=== PATIENT | female | born 1985 | race African-American/Black ===

== ENCOUNTER 2018-03-05 01:27 | Inpatient (IN) | payer MEDICAID ==
[2018-03-05] MEDS ORDERED: PITOCin/NS 20 UNIT/1000ML DRIP 20,000 MILLIUNITS/1,000 ML BAG IV ONE (01:40)
[2018-03-05] MEDS ORDERED: LACTATED RINGERS 1,000 ML ONE (01:40)
[2018-03-05 02:14] LABS: Basophils % (Auto) 0.2 % (0.0-1.8); Eosinophils # (Auto) 0.1 K/mm3 (0.0-0.4); Eosinophils % (Auto) 0.9 % (0.0-4.3); Hematocrit 40.1 % (30.3-42.9); Hemoglobin 13.9 gm/dl (10.1-14.3); Lymphocytes # (Auto) 3.2 K/mm3 (1.2-5.4); Mean Corpuscular HGB Conc 35 % (30-34); Mean Corpuscular Hemoglobin 32 pg (28-32); Mean Corpuscular Volume 93 fl (79-97); Monocytes # (Auto) 0.9 K/mm3 (0.0-0.8); Monocytes % (Auto) 8.8 % (0.0-7.3); Platelet Count 186 K/mm3 (140-440); Red Blood Count 4.31 M/mm3 (3.65-5.03); Red Cell Distribution Width 13.5 % (13.2-15.2)
[2018-03-05] MEDS ORDERED: XYLOCAINE 2% INFILTRATI ONE ×2 (02:20→02:40)
--- NOTE | 2018-03-05 02:37 | History and Physical Report ---
History of Present Illness Date of examination: 03/05/18 Date of admission: 03/05/18 01:40 Chief complaint: Labor History of present illness: Pt is a 32yo IF EDC 03/10/18; EGA 39 2/7 weeks presents to L&D complaining of RUC's q 3-4 mins and now dilated 10cms. She received care at [facility] , however records are not available and GBS is unknown. Past History Past Medical History: no pertinent history Past Surgical History: no surgical history Family/Genetic History: none Social history: no significant social history, - Obstetrical History Expected Date of Delivery: 03/10/18 Actual Gestation: 39 Week(s) 2 Day(s) : 2 Medications and Allergies Allergies Allergy/AdvReac Type Severity Reaction Status Date / Time No Known Allergies Allergy Unverified 01/15/15 00:38 Home Medications Medication Instructions Recorded Confirmed Last Taken Type Vits96/Iron Fum/Folic 1 tab PO DAILY 01/15/15 01/15/15 01/13/15 23:00 History [ Tablet] 1 tab Ferrous Fumarate [Hemocyte] 324 mg PO QDAY #30 tablet 01/16/15 Unknown Rx Ibuprofen [Motrin] 600 mg PO Q8H PRN #30 tablet 01/16/15 Unknown Rx traMADol [Ultram] 50 mg PO Q4HR PRN #30 tablet 01/16/15 Unknown Rx Active Meds: Active Medications Lactated Ringer's (Lactated Ringers) 1,000 mls @ 125 mls/hr IV DIRECT ALBERTO Oxytocin/Sodium Chloride (Pitocin/Ns 20 Unit/1000ml Drip) 20 units in 1,000 mls @ 250 mls/hr IV DIRECT ALBERTO Review of Systems All systems: negative - Vital Signs Vital signs: Vital Signs Pulse Resp BP 86 18 126/73 03/05/18 01:48 03/05/18 01:48 03/05/18 01:48 Temp Pulse Resp BP Pulse Ox 98 F 100 H 18 119/56 03/05/18 02:32 03/05/18 02:28 03/05/18 02:27 03/05/18 02:28 - Physical Exam Breasts: Positive: deferred Cardiovascular: Regular rate Lungs: Positive: Clear to auscultation Abdomen: Positive: normal appearance Genitourinary (Female): Positive: normal external genitalia Vagina: Positive: normal moisture Uterus: Positive: enlarged Extremities: Positive: normal - Obstetrical FHR: category 1 Uterine Contraction Monitor Mode: External Cervical Dilatation: 10 Cervical Effacement Percentage: 100 station: +1 Uterine Contraction Pattern: Regular Uterine Tone Measurement Phase: Contraction Uterine Contraction Intensity: Strong/Firm Results Result Diagrams: 03/05/18 01:45 Abnormal lab results 03/05/18 Range/Units 01:45 MCHC 35 H (30-34) % Keith % (Auto) 8.8 H (0.0-7.3) % Keith # 0.9 H (0.0-0.8) K/mm3 All other labs normal. Assessment and Plan - Patient Problems (1) 39 weeks gestation of Onset Date: 03/05/18 Current Visit: Yes Status: Acute Plan to address problem: A: IUP @ 39 2/7 weeks in labor Unknown GBS P: Admit to L&D for expectant vaginal delivery IV Ampicillin Obtain records
[2018-03-05] MEDS ORDERED: MINERAL OIL PO PRN (02:40)
[2018-03-05] MEDS ORDERED: BRETHINE SUB-Q PRN (02:40)
[2018-03-05] MEDS ORDERED: ePHEDrine SULFATE IV PRN (02:40)
[2018-03-05] MEDS ORDERED: BRETHINE IVP PRN (02:40)
--- NOTE | 2018-03-05 02:40 | Procedure Note ---
OB Delivery Note - Delivery Date of Delivery: 03/05/18 Surgeon: OBDULIO CHAPMAN Estimated blood loss: 200cc - Vaginal Delivery presentation: vertex Delivery position: OA Intrapartum events: precipitous labor- <3hr Delivery induction: none Delivery augmentation: rupture of membranes Delivery monitor: external FHT, external uterine Route of delivery: Delivery placenta: spontaneous Delivery cord: 3 umbilical vessels Episiotomy: none Delivery laceration: 2nd degree (perineal) Delivery repair: vicryl Anesthesia: local Delivery comments: delivered OA and placed on Mom's chest for [id number] bonding and delayed cord clamping and cut by Dad - Infant A at 1 minute: 8 at 5 minutes: 9 Infant Gender: Female (2751gms)
[2018-03-05] MEDS ORDERED: ZOFRAN IV PRN (02:43)
[2018-03-05] MEDS ORDERED: PHENERGAN PR PRN (02:43)
[2018-03-05] MEDS ORDERED: PHENERGAN PO PRN (02:43)
[2018-03-05] MEDS ORDERED: DULCOLAX PR PRN (02:43)
[2018-03-05] MEDS ORDERED: TUCKS PAD TP PRN (02:43)
[2018-03-05] MEDS ORDERED: MILK OF MAGNESIA PO PRN (02:43)
[2018-03-05] MEDS ORDERED: TYLENOL PO PRN (02:43)
[2018-03-05] MEDS ORDERED: BENADRYL PO PRN (02:43)
[2018-03-05] MEDS ORDERED: LANSINOH TP PRN (02:43)
[2018-03-05] MEDS ORDERED: NORCO 5/325 PO PRN (02:43)
[2018-03-05] MEDS ORDERED: PITOCin/NS 30 UNIT/500ML 30 UNITS/500 ML BAG IV SCH (03:00)
[2018-03-05] MEDS ORDERED: LACTATED RINGERS 1,000 ML IV SCH ×2 (03:00)
[2018-03-05] MEDS ORDERED: PITOCin/NS 20 UNIT/1000ML DRIP 20 UNITS/1,000 ML BAG IV SCH ×3 (03:00)
[2018-03-05] MEDS ORDERED: SODIUM CHLORIDE FLUSH SYRINGE 10 ML IV NR (03:00)
[2018-03-05] MEDS ORDERED: DERMOPLAST TP PRN (05:27)
[2018-03-05] MEDS: MOTRIN PO SCH ×4 (06:02→21:44)
[2018-03-05] MEDS: PRENATAL VITAMIN PO SCH (12:22)
[2018-03-05] MEDS: COLACE PO SCH ×2 (12:22→21:44)
[2018-03-05] MEDS: FEOSOL PO SCH ×2 (12:22→21:44)
[2018-03-05 17:24] LABS: Hematocrit 33.1 % (30.3-42.9); Hemoglobin 11.1 gm/dl (10.1-14.3)
[2018-03-06] MEDS: MOTRIN PO SCH ×4 (05:57→11:33)
[2018-03-06] MEDS ORDERED: BOOSTRIX IM ONE (06:00)
[2018-03-06] MEDS ORDERED: M-M-R II VACCINE SUB-Q ONE (06:00)
--- NOTE | 2018-03-06 09:53 | Progress Note ---
Assessment and Plan - Patient Problems (1) 39 weeks gestation of Onset Date: 03/05/18 Current Visit: Yes Status: Resolved (2) (normal spontaneous vaginal delivery) Onset Date: 03/06/18 Current Visit: Yes Status: Resolved Plan to address problem: A: S/P - PPD #1 Doing well P: May go home today Subjective - Subjective Date of service: 03/06/18 Principal diagnosis: s/p - PPD #1 Interval history: Pt is feeling well without complaints. Bleeding improved. Patient reports: appetite normal, voiding normally, pain well controlled, ambulating normally [place]: doing well, nursing well, bottle feeding Objective - Vital Signs Latest vital signs: Vital Signs Temp Pulse Resp BP BP Pulse Ox 03/06/18 08:08 97.7 F 66 20 106/60 97 03/06/18 00:57 98.0 F 80 18 89/46 100 03/05/18 16:08 98.1 F 68 18 101/66 99 03/05/18 11:28 98.4 F 80 18 103/41 96 Intake and Output 03/05/18 03/06/18 03/06/18 22:59 06:59 14:59 Intake Total 240 240 Balance 240 240 Intake: Oral 240 Intake, Free Water 240 Other: Total, Intake Amount 120 # Voids Void 1 1 - Exam Breasts: Present: deferred Cardiovascular: Present: Regular rate Lungs: Present: Clear to auscultation Abdomen: Present: normal appearance, soft Uterus: Present: normal, firm, fundal height below umbilicus Extremities: Present: normal - Labs Labs: Laboratory Tests 03/05/18 03/05/18 03/05/18 01:45 01:45 01:45 WBC 10.6 RBC 4.31 Hgb 13.9 Hct 40.1 MCV 93 MCH 32 MCHC 35 H RDW 13.5 Plt Count 186 Lymph % (Auto) 30.0 Mathews % (Auto) 8.8 H Eos % (Auto) 0.9 Baso % (Auto) 0.2 Lymph # 3.2 Mathews # 0.9 H Eos # 0.1 Baso # 0.0 Seg Neutrophils % 60.1 Seg Neutrophils # 6.3 RPR Nonreactive Blood Type B POSITIVE Antibody Screen Negative 03/05/18 16:52 WBC RBC Hgb 11.1 Hct 33.1 D MCV MCH MCHC RDW Plt Count Lymph % (Auto) Mathews % (Auto) Eos % (Auto) Baso % (Auto) Lymph # Mathews # Eos # Baso # Seg Neutrophils % Seg Neutrophils # RPR Blood Type Antibody Screen
--- NOTE | 2018-03-06 10:10 | Discharge Summary ---
Providers - Providers Date of Admission: 03/05/18 01:40 Date of discharge: 03/06/18 Attending physician: OBDULIO CHAPMAN Primary care physician: OBDULIO CHAPMAN Hospitalization Reason for admission: active labor, rupture of membranes, IUP at term Delivery: Episiotomy: none Laceration: 2nd degree Incision: normal Other procedures: none complications: none Discharge diagnosis: IUP at term delivered baby: female Hospital course: Unremarkable. Condition at discharge: Good Disposition: DC-01 TO HOME OR SELFCARE - Discharge Diagnoses (1) 39 weeks gestation of Status: Resolved (2) (normal spontaneous vaginal delivery) Status: Resolved Plan - Discharge Medications Prescriptions: Ferrous Sulfate [Feosol 325 MG tab] 325 mg PO BID #60 tablet Ibuprofen [Motrin 600 MG tab] 600 mg PO Q6H #30 tablet Vit-Fe Fumar-FA [ Vitamin] 1 each PO QDAY #30 tablet - Provider Discharge Summary Activity: routine, no sex for 6 weeks, no heavy lifting 4 weeks, no strenuous exercise Diet: routine Instructions: routine Additional instructions: [] Smoking cessation referral if applicable(refer to patient education folder for contact #) [] Refer to [facility] Booklet Call your doctor immediately for: * Fever > 100.5 * Heavy vaginal bleeding ( >1 pad per hour) * Severe persistent headache * Shortness of breath * Reddened, hot, painful area to leg or breast * Drainage or odor from incision. * Keep incision clean and dry at all times and follow doctor's instructions regarding bathing/showering - Follow up plan Follow up: OBDULIO CHAPMAN MD [Primary Care Provider] - 6 Weeks GURINDER COLLIER CNM [Advanced Practice Nurse] - 6 Weeks
[2018-03-06] MEDS: COLACE PO SCH (11:27)
[2018-03-06] MEDS: PRENATAL VITAMIN PO SCH (11:27)
[2018-03-06] MEDS: FEOSOL PO SCH (11:27)
[2018-03-06 17:40] VITALS: BP 104/70
== END 2018-03-06 17:19 | disposition home or self-care (01) | DRG 775 ==
LOC: TRG 01:27 → LD 01:40 → OB 04:28
PROVIDERS: ADMIT Obstetrics & Gynecology; ATTEND Obstetrics & Gynecology
PROC: 10E0XZZ Delivery of Products of Conception, External Approach (ICD-10-PCS; principal; 2018-03-05)
PROC: 0KQM0ZZ Repair Perineum Muscle, Open Approach (ICD-10-PCS; 2018-03-05)
PROC: 3E0234Z Introduction of Serum, Toxoid and Vaccine into Muscle, Percutaneous Approach (ICD-10-PCS; 2018-03-05)
DX: O62.3 Precipitate labor (principal); Z3A.39 39 weeks gestation of pregnancy; Z37.0 Single live birth; O70.1 Second degree perineal laceration during delivery; Z23 Encounter for immunization
CPT/HCPCS: 36415; 85014; 85018; 85025; 86592; 86706; 86850; 86900; 86901; 87350; 90715; A6250; J2590; J7120